=== PATIENT | female | born 1930 | race Caucasian/White ===

== ENCOUNTER 2019-03-03 16:45 | Emergency (ER) | payer MEDICARE, BC ==
[2019-03-03] MEDS: KETOROLAC 15 MG INJ IM (21:24)
== END 2019-03-03 22:08 | disposition home or self-care (01) ==
LOC: FTE 16:45
DX: S80.01XA Contusion of right knee, initial encounter (principal); I10 Essential (primary) hypertension; S40.022A Contusion of left upper arm, initial encounter; S80.12XA Contusion of left lower leg, initial encounter; W19.XXXA Unspecified fall, initial encounter; Y92.9 Unspecified place or not applicable; Z79.01 Long term (current) use of anticoagulants; Z79.84 Long term (current) use of oral hypoglycemic drugs
CPT/HCPCS: 72072; 73030; 73562; 73630-LT; 96372; 99284-25